=== PATIENT | female | born 1975 | race African-American/Black ===

== ENCOUNTER 2017-02-12 22:18 | Emergency (ER) | payer OTHER ==
[~2017-02-12] VITALS: Ht 160 cm; Wt 140.2 kg
--- NOTE | 2017-02-12 22:39 | NUR ---
called no answer.
[2017-02-12] MEDS ORDERED: LEVE500T9 PO (22:44)
[2017-02-12] MEDS ORDERED: METO25TA6 PO (22:44)
--- NOTE | 2017-02-12 22:50 | NUR ---
PT CAME IN FROM HOME W/ CO WITNESSED SEIZURE BY FAMILY MEMBER 1 HR AGO @ 2200. PER PT SHE HAD X2 EPISODES OF SZ, ONE IN AM AND ONE AT 2200. PT A/OX4. DENIES ANY HEADACHE AT THIS TIME. PEERLA. PLACED PT ON SEIZRE PRECAUTION. AWAITING ER MD FOR EVAL.
--- NOTE | 2017-02-12 23:08 | NUR ---
DR HUFFMAN AT BEDSIDE FOR EVAL
[2017-02-13 00:01] LABS: BASOPHILS # (AUTO) 0.1 /CMM (0.0-0.2); BASOPHILS % (AUTO) 0.8 % (0.0-2.0); EOSINOPHILS # (AUTO) 0.3 /CMM (0.0-0.7); EOSINOPHILS % (AUTO) 4.5 % (0.0-6.0); HEMATOCRIT 35 % (33-45); HEMOGLOBIN 11.4 g/dL (11.5-14.8); LYMPHOCYTES # (AUTO) 2.9 /CMM (0.8-4.8); LYMPHOCYTES % (AUTO) 37.6 % (20.0-44.0); MEAN CORPUSCULAR HEMOGLOBIN 27 PG (26.0-33.0); MEAN CORPUSCULAR HGB CONC 33 g/dl (31.0-36.0); MEAN CORPUSCULAR VOLUME 83 fL (82-100); MONOCYTES # (AUTO) 0.4 /CMM (0.1-1.30); MONOCYTES % (AUTO) 5.8 % (2.0-12.0); NEUTROPHILS # (AUTO) 3.9 /CMM (1.8-8.9); NEUTROPHILS % (AUTO) 51.3 % (43.0-81.0); PLATELET COUNT (AUTO) 227 /CMM (150-450); RDW COEFFICIENT OF VARIATION 15.4 (11.5-15.0); RED BLOOD CELL COUNT(AUTO) 4.18 MIL/uL (4.0-5.2); WHITE BLOOD COUNT (AUTO) 7.6 K/uL (4.3-11.0)
[2017-02-13 00:08] LABS: INR 1.06 (0.87-1.13); PROTHROMBIN TIME 11.4 SECS (9.5-12.7)
[2017-02-13 00:09] LABS: CALCIUM, SERUM 9.1 mg/dL (8.5-10.1); CARBON DIOXIDE 28 mmol/L (21-32); CHLORIDE 108 mmol/L (98-107); CREATININE 0.8 mg/dL (0.6-1.3); GLUCOSE 71 mg/dL (74-106); POTASSIUM 3.8 mmol/L (3.5-5.1); SODIUM SERUM 143 mmol/L (136-145); UREA NITROGEN, BLOOD 19 mg/dL (7-18)
[2017-02-13 00:16] LABS: ALANINE AMINOTRANSFERASE 14 U/L (12-78); ALCOHOL, BLOOD < 3 mg/dL (0-0); ALKALINE PHOSPHATASE 56 U/L (46-116); ASPARTATE AMINOTRANSFERASE 9 U/L (15-37); BILIRUBIN,DIRECT 0.1 mg/dL (0.0-0.2); BILIRUBIN,TOTAL 0.3 mg/dL (0.2-1.0); TOTAL PROTEIN, SERUM 7.4 g/dL (6.4-8.2)
--- NOTE | 2017-02-13 01:25 | NUR ---
PT SIGNED WAIVER. RADIOLOGY AT BEDSIDE TO TAKE PT FOR CT SCAN
[2017-02-13] MEDS ORDERED: LEVETIRACETAM (250 MG) 250 MG TABLET PO ONE ×2 (01:30→01:32)
--- NOTE | 2017-02-13 03:26 | NUR ---
Patient given prescription for keppra and instructed to follow up w/ neurologist for same day appt. Patient discharged to home in stable condition. Written and verbal after care instructions given. Patient verbalizes understanding of instruction.
[2017-02-13 03:27] VITALS: BP 122/65
== END 2017-02-13 03:28 | disposition home or self-care (01) ==
LOC: ER 22:20
DX: R56.9 Unspecified convulsions (principal); I10 Essential (primary) hypertension; E66.01 Morbid (severe) obesity due to excess calories; R79.1 Abnormal coagulation profile; Z98.890 Other specified postprocedural states
CPT/HCPCS: 36415; 70450; 80048; 80076; 80305; 84703; 85025; 85730; 99285; A4606; G0480; Z7610